=== PATIENT | female | born 1970 | race Caucasian/White ===

== ENCOUNTER → 2019-05-06 | Outpatient (CLI) | payer BC ==
[~2019-05-06] MED LIST: GADOBUTROL 10 MMOL/10 ML (GADAVIST) VIAL IV ONE
--- NOTE | 2019-05-06 10:20 | Diagnostic Imaging Report ---
PROCEDURE: MR imaging of the brain with and without contrast. TECHNIQUE: Multiplanar, multisequence MR imaging of the brain was performed with and without contrast. INDICATION: Headaches and visual disturbances. COMPARISON: No prior MRI brain studies are available for comparison. FINDINGS: Ventricles and sulci are within normal limits. No sulcal effacement or midline shift is identified. No acute intra-axial or extra-axial hemorrhage is detected. No diffusion restriction is identified. The normal expected flow-voids within the carotid siphons are seen. No abnormal enhancement following contrast administration is seen. The corpus callosum is unremarkable. The sella and parasellar structures are unremarkable. IMPRESSION: Unremarkable pre and postcontrast MRI of the brain. Dictated by: Dictated on workstation # [id number]
== END ==
LOC: RAD 08:33
PROVIDERS: ATTEND Family Medicine
DX: H53.133 Sudden visual loss, bilateral (principal); R51 Headache
CPT/HCPCS: 70553

== ENCOUNTER → 2019-10-03 | Outpatient (CLI) | payer BC ==
--- NOTE | 2019-10-03 17:40 | Diagnostic Imaging Report ---
PROCEDURE: US Non-OB pelvis comp/trans. TECHNIQUE: Multiple realtime grayscale images were obtained of the pelvis in various projections endovaginally. Transabdominal imaging was also performed. INDICATION: Menorrhagia and dysmenorrhea. FINDINGS: Left ovary contains a 1.3 cm simple cyst, likely physiologic follicle. No finding felt suggestive of adnexal torsion although color Doppler flow to the adnexa was difficult to detect. Ovarian volume is normal. The right 2.5 x 1.5 x 1.8 cm, the left 1.9 x 1.5 x 1.9 cm. The uterus appears unremarkable. No fibroid or myometrial mass. The endometrial thickness is 8 mm and appears homogenous. IMPRESSION: No pathological finding revealed at pelvic ultrasound. Dictated by: Dictated on workstation # [id number]
--- NOTE | 2019-10-04 09:29 | Diagnostic Imaging Report ---
INDICATION: Routine screening. No prior mammograms are available for comparison. This is a baseline study. 2-D and 3-D bilateral screening mammography was performed with CAD. Scattered fibroglandular densities are identified bilaterally. No mass or malignant-appearing microcalcifications are seen. Axillae are unremarkable. IMPRESSION: BI-RADS Category 1 No mammographic features suspicious for malignancy are identified. ACR BI-RADS Category 1: Negative. Result letter will be mailed to the patient. Note: At least 10% of breast cancer is not imaged by mammography. Dictated by: Dictated on workstation # [id number]
== END ==
LOC: RAD 14:21
PROVIDERS: ATTEND Obstetrics & Gynecology
DX: Z12.31 Encounter for screening mammogram for malignant neoplasm of breast (principal); N92.1 Excessive and frequent menstruation with irregular cycle; N94.6 Dysmenorrhea, unspecified; Z86.018 Personal history of other benign neoplasm
CPT/HCPCS: 76830; 76856; 77063; 77067

== ENCOUNTER → 2020-02-04 | Outpatient (CLI) | payer BC ==
--- NOTE | 2020-02-04 18:52 | Diagnostic Imaging Report ---
EXAMINATION: Left shoulder at 3:01 PM INDICATION: Shoulder pain 3 views were obtained. There are no prior studies available for comparison. There is no fracture, dislocation or acute bony abnormality evident. There does seem to be moderate degenerative disease of the glenohumeral and acromioclavicular joints. The soft tissues are unremarkable. IMPRESSION: 1. There is no evidence for an acute bony abnormality. 2. 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 If there is clinical concern regarding injury to the rotator cuff or labrum, then MRI would be recommended for further study. Dictated by: Dictated on workstation # [id number]
== END ==
LOC: RAD 14:35
PROVIDERS: ATTEND Family Medicine
DX: M19.012 Primary osteoarthritis, left shoulder (principal)
CPT/HCPCS: 73030

== ENCOUNTER → 2020-02-17 | Outpatient (CLI) | payer BC ==
--- NOTE | 2020-02-17 10:26 | Diagnostic Imaging Report ---
PROCEDURE: MR imaging cervical spine without contrast. TECHNIQUE: Multiplanar, multisequence MR imaging of the cervical spine was performed without contrast. INDICATION: Numbness and tingling in the hands and feet. COMPARISON: none. FINDINGS: No acute fracture or dislocation is seen in the cervical spine. There is straightening of the cervical spine. The vertebral body heights and disc spaces are well maintained. The bone marrow signal is unremarkable. No focal osseous lesions. The craniocervical junction is maintained. The cervical spinal cord demonstrates normal intrinsic signal. No epidural collections are seen. The included brainstem and posterior fossa have normal appearance. Multilevel degenerative changes are seen in the cervical spine with posterior disc bulges and uncovertebral arthropathy. C2-C3: No significant spinal canal or foraminal stenosis. C3-C4: Uncovertebral arthropathy results in no significant spinal canal narrowing and mild left and no right foraminal narrowing. C4-C5: Uncovertebral arthropathy results in no significant spinal canal narrowing and mild right and mkfl-[id number]-bcyfdcjf left foraminal narrowing. C5-C6: Uncovertebral arthropathy and posterior disc bulge results in mild spinal canal narrowing and xgtc-ak-kfipbusb right and moderate left foraminal stenosis. C6-C7: No significant spinal canal or foraminal stenosis. C7-T1: No significant spinal canal or foraminal stenosis. The soft tissues of neck are unremarkable. IMPRESSION: 1. No acute fracture or dislocation of the cervical spine. 2. Multilevel degenerative changes in the cervical spine, greatest at C5-C6. Dictated by: Dictated on workstation # [id number]
--- NOTE | 2020-02-17 10:46 | Diagnostic Imaging Report ---
INDICATION: Numbness, tingling in the hands FINDINGS: Thoracic spinal cord itself has a normal volume and normal morphology and normal signal intensity. CSF circumscribes the cord at each vertebral body and disc space level with no compression or substantial stenosis. No significant narrowing of the neural foramina. Body heights maintained. Marrow signal intensity normal. The alignment anatomic. No edema. No acute epidural pathology. IMPRESSION: There is an unremarkable thoracic spinal MRI. Dictated by: Dictated on workstation # [id number]
--- NOTE | 2020-02-17 10:56 | Diagnostic Imaging Report ---
CLINICAL INDICATION: Patient is having numbness and tingling in the hands and feet. EXAM: MRI of the lumbar spine performed without IV contrast. Sagittal T2, sagittal T1, sagittal T2 fat-sat, and axial T2. COMPARISON: None. FINDINGS: Five lumbar type vertebra are identified. There is a small S1-S2 intervertebral disc. Lumbar spine has normal alignment with no fracture or dislocation. There are minimal Modic type II degenerative signal changes seen anteriorly at the L1-L2 endplates. There is an intraosseous hemangioma within the L1 vertebra. The visualized portions of the distal spinal cord, conus medullaris, and cauda equina have normal anatomic appearance. The conus medullaris tip is seen at the lower L1 vertebral body level. No paraspinal soft tissue abnormality is seen. There are mildly hypertrophic spurs involving the lumbar spine. There is mild levorotoscoliosis of the lower lumbar spine. There is lower lumbar spine facet arthropathy. L1-L2: There is a mild diffuse disc bulge with superimposed moderate sized disc protrusion/herniation in the far left lateral region. There is mild left neural foramen narrowing. There is concern for possible encroachment upon the exited left L1 nerve root. Otherwise this level is unremarkable. L2-L3: There is minimal disc bulging with small superimposed extraforaminal disc protrusion/herniation. There is minimal encroachment upon the left neural foramen region. There is no significant central canal or right neural foramen narrowing. L3-L4: There is mild diffuse disc bulging with superimposed small disc protrusion/herniation with disc spurs extending into the left foraminal and left extraforaminal region. There is a small annular tear involving the extraforaminal aspect of the disc. There is zhrx-sg-eelampox left neural foramen narrowing. There is concern for possible encroachment upon the exited left L3 nerve root. There is no significant central canal or right neural foramen narrowing. There is mild bilateral facet arthropathy. L4-L5: There are small disc spurs/herniations in the foraminal regions bilaterally which cause mild bilateral neural foramen narrowing. There is no significant central canal narrowing. There is mild bilateral facet arthropathy. L5-S1: There is moderate left facet arthropathy/hypertrophy and mild right facet arthropathy. There is a small disc bulge in the left foraminal region which causes moderate left neural foramen narrowing. There is no significant right neural foramen narrowing and no significant central canal narrowing. IMPRESSION: 1: There are mild diffuse disc bulges with superimposed disc herniations in the left extraforaminal region seen at the L1-L2, L2-L3, and L3-L4 levels with the L1-L2 level most prominent. Due to the left extraforaminal disc herniations, there is concern for encroachment upon the exited left L1 nerve root at the L1-L2 level and concerning for possible encroachment upon the exited left L2 and L3 nerve roots at the L2-L3 and L3-L4 levels, as described above. 2: There is moderate left L5-S1 neural foramen narrowing due to disc spurs and facet arthropathy. 3: There is no significant central canal narrowing. Dictated by: Dictated on workstation # [id number]
== END ==
LOC: RAD 08:45
PROVIDERS: ATTEND Family Medicine
DX: M48.07 Spinal stenosis, lumbosacral region (principal); M47.817 Spondylosis without myelopathy or radiculopathy, lumbosacral region; M51.26 Other intervertebral disc displacement, lumbar region; M47.812 Spondylosis without myelopathy or radiculopathy, cervical region
CPT/HCPCS: 72141; 72146; 72148

== ENCOUNTER → 2021-02-12 | Outpatient (CLI) | payer BC | LOC: CARD 14:00 | PROVIDERS: ATTEND Internal Medicine Cardiovascular Disease | DX: I51.7 Cardiomegaly (principal) | CPT/HCPCS: 93306 ==

== ENCOUNTER 2021-05-12 13:38 | Outpatient (CLI) | payer BC ==
[~2021-05-12] VITALS: Ht 167.7 cm; Wt 110.0 kg
[2021-05-12] MEDS ORDERED: ceFAZolin 2 GM IV Premixed 50 ML IV ONE (15:15)
[2021-05-12] MEDS ORDERED: MULT-593 PO (15:21)
[2021-05-12] MEDS ORDERED: ASPI-999 PO (15:21)
[2021-05-12] MEDS ORDERED: ELAG150T PO (15:21)
== END 2021-05-12 15:32 | disposition home or self-care (01) ==
LOC: PREOP 13:38
PROVIDERS: ATTEND Obstetrics & Gynecology
DX: Z01.818 Encounter for other preprocedural examination (principal)

== ENCOUNTER 2021-05-14 10:52 | Day surgery (SDC) | payer BC ==
[2021-05-14] VITALS (7 sets, daily range): BP systolic 137–161; BP diastolic 62–82
[~2021-05-14] VITALS: Ht 167.7 cm; Wt 110.0 kg
[~2021-05-14 10:52] MED LIST changes: +ASPI-999 PO; +ELAG150T PO; -GADOBUTROL 10 MMOL/10 ML (GADAVIST) VIAL IV ONE; +MULT-593 PO
[2021-05-14] MEDS ORDERED: ceFAZolin 2 GM IV Premixed 50 ML IV ONE (11:15)
[2021-05-14 11:38] LABS: BASOPHILS % (AUTO) 1 % (0-10); EOSINOPHILS # (AUTO) 0.1 10^3/uL (0.0-0.3); EOSINOPHILS % (AUTO) 2 % (0-10); HEMATOCRIT 44 % (35-52); HEMOGLOBIN 14.1 g/dL (11.5-16.0); LYMPHOCYTES % (AUTO) 24 % (12-44); MEAN CORPUSCULAR HEMOGLOBIN 28 pg (25-34); MEAN CORPUSCULAR HGB CONC 32 g/dL (32-36); MEAN CORPUSCULAR VOLUME 87 fL (80-99); MEAN PLATELET VOLUME 10.3 fL (9.0-12.2); MONOCYTES # (AUTO) 0.6 10^3/uL (0.0-1.0); MONOCYTES % (AUTO) 8 % (0-12); NEUTROPHILS # (AUTO) 5.6 10^3/uL (1.8-7.8); NEUTROPHILS % (AUTO) 66 % (42-75); PLATELET COUNT 402 10^3/uL (130-400); WHITE BLOOD COUNT 8.4 10^3/uL (4.3-11.0)
[2021-05-14] MEDS: LACTATED RINGERS 1,000 ML IV PRN ×3 (11:58→15:44)
[2021-05-14] MEDS ORDERED: BUPIVACAINE 0.25% 30 ML (SENSORCAINE) VIAL ONE (11:59)
[2021-05-14] MEDS ORDERED: MIDAZOLAM 2 MG/2 ML (VERSED) VIAL ONE (12:13)
[2021-05-14] MEDS ORDERED: SEVOFLURANE (ULTANE) 15 ML INHAL SOLN ONE ×2 (12:13→15:25)
[2021-05-14] MEDS ORDERED: ONDANSETRON 4 MG/2 ML (SDV) Z0FRAN ONE (12:13)
[2021-05-14] MEDS ORDERED: LIDOCAINE PF 2% 5 ML (XYLOCAINE) VIAL ONE (12:13)
[2021-05-14] MEDS ORDERED: ROCURONIUM 50 MG/5 ML (ZEMURON) VIAL IV ONE (12:13)
[2021-05-14] MEDS ORDERED: proPOfol 200 MG/20 ML (DIPRIVAN) VIAL IV ONE (12:13)
[2021-05-14] MEDS ORDERED: fentaNYL INJ 100 MCG/2 ML AMP ONE ×2 (12:13→15:30)
--- NOTE | 2021-05-14 13:03 | Progress Note-Pre Operative ---
Pre-Operative Progress Note H&P Reviewed The H&P was reviewed, patient examined and no changes noted. Date Seen by Provider: May 14, 2021 Time Seen by Provider: 12:45 Date H&P Reviewed: May 14, 2021 Time H&P Reviewed: 12:45 Pre-Operative Diagnosis: endometriosis, abnormal uterine bleeding. BART SCHERER DO May 14, 2021 13:03
[2021-05-14] MEDS ORDERED: NEOSTIGMINE 3 MG/3 ML VIAL ONE (15:13)
[2021-05-14] MEDS ORDERED: GLYCOPYRROLATE 0.2 MG/ML (ROBINUL) 2 ML VIAL ONE (15:13)
[2021-05-14] MEDS ORDERED: SIMETHICONE 80 MG (MYLICON) CHEW PO PRN (15:15)
[2021-05-14] MEDS ORDERED: LACTATED RINGERS 1,000 ML IV SCH (15:15)
[2021-05-14] MEDS ORDERED: ONDANSETRON 4 MG (ZOFRAN) ORAL DISSOLVE TAB PO PRN (15:15)
[2021-05-14] MEDS ORDERED: fentaNYL INJ 100 MCG/2 ML AMP IVP PRN (15:15)
[2021-05-14] MEDS ORDERED: CHLORASEPTIC LOZENGE MM PRN (15:15)
[2021-05-14] MEDS ORDERED: NALOXONE 0.4 MG/ML 1 ML (NARCAN) VIAL IV PRN (15:15)
--- NOTE | 2021-05-14 15:17 | Operative Report ---
Operative Report Date of Procedure/Surgery May 14, 2021 Surgeon (s) BART SCHERER DO Batch Records Clerk (s): NA Post-Operative Diagnosis endometriosis, right endometriomas, periovarian adhesions Procedure Performed RaTH, bilateral salpingectomy, right oophorectomy, lysis of adhesions Description of Procedure Anesthesia Type: General Estimated blood loss (mL): 200 ml Specimen(s) collected/removed uterus bilateral tubes and right ovary Description of the Procedure After informed consent was obtained, patient was taken into the operating room where general anesthetic was found to be adequate. She was prepped and draped in the usual sterile fashion in the dorsal lithotomy position. A Marie catheter was placed. A speculum was placed in the vagina. The cervix was visualized and the anterior lip was grasped with a sharp toothed tenaculum. The uterus was sounded and depth was approximately 8 centimeters. She was actively menstruating/bleeding. I placed the Maira device (8 cm) and a 3.0 cm collar was advanced over the cervix. I inserted the Maira without difficulty, inflating the balloon and securing it around the fornix of the cervix. The collar was then secured with sutures at 12 o'clock. Attention was then turned to the patient's abdomen. The skin was injected with 0.1% lidocaine with epinephrine. A supraumbilical incision was made about 8 mm in length. A Veress needle was inserted and I confirmed intraabdominal placemen t with a drop in pressure and the saline drop test. The opening pressure was 7 mmHg. I then insufflated the abdomen to a maximum of 15 mmHg with warmed CO2 gas. The second and third robotic port were placed about 12 cm lateral to the right and left of the umbilical placement. These were an 8 mm trocar. These were placed under direct visualization of the laparoscope. 0.1% lidocaine with epinephrine was injected prior to placement of all trocars. When all placements were confirmed, the patient was placed in steep Trendelenburg allowing adequate visualization and the robot was brought in for docking. The docking was accomplished without difficulty. It was determined that this could be accomplished robotically. I then took over the command of the robot utilizing the synchroseal and monopolar zack. I was able to visualize the round ligaments bilaterally and grasped them and cauterized with bipolar cautery and then cut with my zack. At this point, I then did bilateral salpingectomy. I incised the mesosalpinx with the zack. Then i transected bilaterally using the synchroseal. The right ovary was adherent to the ovarian fossa completely. As I was attempting to separate the ovary from the uterus, there was a gush of endometrioma type fluid (chocolate cyst) that was released. Due to the endometriomas, I opted to remove this ovary. The infundibulopelvic ligament was then grasped on the right with the Synchroseal, cauterized and transected. I then moved my dissection to the posterior leaves of the broad ligament. I dissected the posterior leaves of the broad ligament off the uterine arteries skeletonizing them bilaterally. I then took a second clamp with the synchroseal and with the zack, transected the vessels away from the lateral aspect to the cervical stroma. There were very extensive vesicouterine and parauterine adhesions from the previous sections. These took approximately 20 extra minutes to take down. I dissected the anterior peritoneum off the lower uterine segment. I continually pushed the bladder back and I took excessively great care and I was eventually able to dissect the vesicouterine peritoneum off the lower uterine segment and the adhesions of the uterus to the pelvic sidewall bilaterally. I then dissected in a V fashion towards the midline between the uterosacral ligaments. This allowed me to skeletonize the uterine vessels bilaterally. The balloon on the MAIRA was insufflated. This allowed me to see the MAIRA circumferentially. I then performed a colpotomy anteriorly and then amputate with cervix away from the vaginal fornix. I then continued the colpotomy circumferentially. Once this was performed, the registered nurse first assistant removed the uterus through the vagina. She then left the a sponge in the vagina to maintain the pneumoperitoneum. . I then began closure of the vaginal cuff. I closed the apices of the vaginal cuff with 2-0 Vicryl V lock sutures with a colposuspension through the uterosacral ligaments. This suspended the apices of the vaginal cuff. I extended this to the midline from both sides and overlapped the V lock sutures in the midline. Excellent closure is noted and hemostasis is achieved. All the needles were removed from the patient's abdomen. Now, the robotic instruments were removed and the robot was docked back to laparoscopy. The pelvis was irrigated. There was no active bleeding noted. Surgiflow was placed along the dissected areas to prevent bleeding. Bilateral ureters were seen the entire time during the surgery and were peristalsing. There was no excessive bleeding noted. The trocars were removed under direct visualization. The laparoscopic sites were visualized and found to be hemostatic. The skin incisions were closed with 4-0 Monocryl in a subcuticular fashion and then with Dermabond. Op sites were placed over the incision sites. The vagina was examined and I noted there were no abrasions. Sponge, lap, needle and instrument counts correct times two. Patient was awakened and taken to recovery in a stable condition Findings of the Procedure uterus slightly enlarged and boggy. complex right ovarian cysts, endometrioma, endometriosis on the left ovary. adhesions in the posterior culdesac, dione masters window in the left pelvis lateral to the US ligament Allergies and Home Medications Allergies Coded Allergies: morphine (Verified Allergy, Unknown, ITCHY, 05/14/21) Patient Home Medication List Home Medication List Reviewed: Yes Acetaminophen (Acetaminophen) 500 Mg Tablet, 1,000 MG PO Q8HR Prescribed by: BART SCHERER on 05/14/211829 Ibuprofen (Ibu) 600 Mg Tablet, 600 MG PO Q6HR Prescribed by: BART SCHERER on 05/14/211829 Oxycodone Hcl (Oxyir Tablet) 5 Mg Tab, 5 MG PO Q4HR PRN for PAIN-SEE DOSE I NSTRUCTIONS Prescribed by: BART SCHERER on 05/14/211829 Simethicone (Mi-Acid) 80 Mg Tab.chew, 80 MG PO Q2HR PRN for gas Prescribed by: BART SCHERER on 05/14/211829 Discontinued Medications Aspirin (Aspirin) 81 Mg Tab.chew, 81 MG PO DAILY, (Reported) Entered as Reported by: NII QUIJANO on 05/12/211520 Last Action: Discontinued Elagolix Sodium (Orilissa) 150 Mg Tablet, 150 MG PO DAILY, (Reported) Entered as Reported by: NII QUIJANO on 05/12/211520 Last Action: Discontinued Multivitamin with Minerals (Multiple Vitamin) 1 Each Tablet, 1 EACH PO DAILY, (Reported) Entered as Reported by: NII QUIJANO on 05/12/211520 Last Action: Discontinued BART SCHERER DO May 14, 2021 15:17
[2021-05-14] MEDS ORDERED: KETOROLAC 30 MG/ML VIAL ONE (15:41)
[2021-05-14] MEDS ORDERED: fentaNYL INJ 100 MCG/2 ML AMP IVP ONE (15:45)
[2021-05-14] MEDS ORDERED: HYDROmorphone 2 MG/ML VIAL (DILAUDID) IV ONE (15:45)
[2021-05-14] MEDS: ONDANSETRON 4 MG/2 ML (SDV) Z0FRAN IVP PRN ×2 (16:05→16:31)
--- NOTE | 2021-05-14 16:37 | Anesthesia-General Post-Op ---
General Patient Condition Mental Status/LOC: Same as Preop Cardiovascular: Satisfactory Nausea/Vomiting: Absent Respiratory: Satisfactory Pain: Controlled Complications: Absent Post Op Complications Complications None Follow Up Care/Instructions Patient Instructions None needed. Anesthesia/Patient Condition Patient Condition Patient is doing well, no complaints, stable vital signs, no apparent adverse anesthesia problems. No complications reported per nursing. CARLOS GASPAR CRNA May 14, 2021 16:37
[2021-05-14] MEDS ORDERED: KETOROLAC 30 MG/ML VIAL IV SCH (18:00)
[2021-05-14] MEDS ORDERED: SMT80CT PO (18:30)
[2021-05-14] MEDS ORDERED: OXC5T PO (18:30)
[2021-05-14] MEDS ORDERED: IBUP-844 PO (18:30)
[2021-05-14] MEDS ORDERED: ACET-93 PO (18:30)
--- NOTE | 2021-05-14 18:32 | Discharge Inst-Women's Service ---
Discharge Inst-Women's Serv Depart Medication/Instructions New, Converted or Re-Newed RX: RX Given to Pt/Family Instructions nothing in vagina until cleared by physician no lifting over 25 lbs no driving for 1 week Final Diagnosis endometriosis abnormal uterine bleeding Problems Reviewed?: Yes Consults/Follow Up Additional Follow Up: Yes (1 week for incision check and 8 week post operative exam) Activity Activity: Activity as Tolerated Driving Instructions: No Driving for 1 Week NO SMOKING: NO SMOKING Nothing Inside Vagina: No Douching, No [place], No Tampons Diet Discharge Diet: No Restrictions Symptoms to Report to : Bleeding Excessive, Pain Increased, Fever Over 101 Degrees F, Vaginal Bleeding Increase, Cramps in Feet or Legs, Vaginal Discharge Foul For Any Problems or Questions: Contact Your Physician Skin/Wound Care Infection Signs and Symptoms: Increased Redness, Foul Odor of Wound, Increased Drainage, Skin Itchy or Has a Rash, Increased Swelling, Temperature Above 101 F Operative Area Clean and Dry: You May Remove Bandage (in 72 hours or if soiled/wet) Stitches/Sravani/Dermabond: Dermabond Bathing Instructions: BART Camp DO May 14, 2021 18:32
[2021-05-14] MEDS ORDERED: ACETAMINOPHEN 500 MG TAB (TYLENOL) PO SCH (22:00)
[2021-05-15] MEDS ORDERED: IBUPROFEN 600 MG (MOTRIN) TAB PO SCH (18:00)
== END 2021-05-14 19:50 | disposition home or self-care (01) ==
LOC: SDC 10:52 → WS 16:20 → SDC 19:50
PROVIDERS: ATTEND Obstetrics & Gynecology
DX: N80.0 Endometriosis of uterus (principal); N73.6 Female pelvic peritoneal adhesions (postinfective); N72 Inflammatory disease of cervix uteri; N83.11 Corpus luteum cyst of right ovary; N88.8 Other specified noninflammatory disorders of cervix uteri; N80.2 Endometriosis of fallopian tube; N83.8 Other noninflammatory disorders of ovary, fallopian tube and broad ligament; N80.3 Endometriosis of pelvic peritoneum; E66.9 Obesity, unspecified; M41.9 Scoliosis, unspecified; Z79.82 Long term (current) use of aspirin; Z87.891 Personal history of nicotine dependence; Z79.899 Other long term (current) drug therapy; Z79.891 Long term (current) use of opiate analgesic; Z68.39 Body mass index [BMI] 39.0-39.9, adult; Z93.9 Artificial opening status, unspecified; Z98.890 Other specified postprocedural states
CPT/HCPCS: 36415; 84703; 85025; 86850; 86900; 86901; 87081; 88307

== ENCOUNTER → 2022-03-28 | Outpatient (REF) ==
[~2022-03-28] MED LIST changes: +ACET-93 PO; +IBUP-844 PO; +OXC5T PO; +SMT80CT PO
--- NOTE | 2022-03-28 15:23 | Diagnostic Imaging Report ---
Indication: Right foot pain. Time of Exam: 3:16 PM 3 views of the right foot were obtained. The metatarsals appear to be intact. The phalanges are intact. Midfoot and hindfoot are unremarkable. No fractures are seen. Impression: No acute bony abnormality is detected. Dictated by: Dictated on workstation # [id number]
== END | disposition home or self-care (01) ==
LOC: OCC 14:59
PROVIDERS: ATTEND Family Medicine
DX: Z01.818 Encounter for other preprocedural examination (principal)
CPT/HCPCS: 73630